=== PATIENT | male | born 1965 | race Two or more races ===

== ENCOUNTER 2021-02-17 10:00 | Inpatient (IN) | payer OTHER ==
[~2021-02-17] VITALS: Ht 167.6 cm; Wt 95.3 kg
[2021-02-17] MEDS ORDERED: SYNTHROID100 MCG PO (10:46)
[2021-02-17] MEDS ORDERED: [UNRECOGNIZED DRUG - OTHER] PO (10:46)
[2021-02-17] MEDS ORDERED: NORVASC2.5 M1 PO (10:47)
[2021-02-17] MEDS ORDERED: VASOTEC20 M1 PO (10:47)
[2021-02-24] MEDS ORDERED: DICLOFENAC SODI75 MG (13:05)
[2021-02-24] MEDS ORDERED: TAMSULOSIN HCL0.4 MG (13:05)
== END 2021-02-27 19:06 | DRG 470 ==
LOC: SURH 02-24 07:00 → O/R 02-24 08:41 → SURH 02-24 10:00
PROVIDERS: ADMIT Orthopaedic Surgery; ATTEND Orthopaedic Surgery
PROC: 0QR407Z Replacement of Right Acetabulum with Autologous Tissue Substitute, Open Approach (ICD-10-PCS; 2021-02-24)
PROC: 0SR901Z Replacement of Right Hip Joint with Metal Synthetic Substitute, Open Approach (ICD-10-PCS; principal; 2021-02-24 07:00)
DX: M16.11 Unilateral primary osteoarthritis, right hip (principal); D62 Acute posthemorrhagic anemia; M85.661 Other cyst of bone, right lower leg; I10 Essential (primary) hypertension; E03.8 Other specified hypothyroidism; Z20.822 Contact with and (suspected) exposure to COVID-19